=== PATIENT | male | born 1990 | race Caucasian/White ===

== ENCOUNTER 2021-06-10 01:18 | Emergency (ER) | payer BC ==
[2021-06-10] MEDS ORDERED: AMOXIL500 M1 PO (02:04)
[2021-06-10 02:15] VITALS: BP 128/74
== END 2021-06-10 02:15 | disposition home or self-care (01) ==
LOC: ED 01:18
DX: S01.512A Laceration without foreign body of oral cavity, initial encounter (principal); F17.210 Nicotine dependence, cigarettes, uncomplicated; W01.0XXA Fall on same level from slipping, tripping and stumbling without subsequent striking against object, initial encounter

== ENCOUNTER 2024-03-21 23:59 | Emergency (ER) | payer BC ==
[~2024-03-21] VITALS: Ht 170.2 cm; Wt 95.5 kg
[~2024-03-21 23:59] MED LIST: AMOXIL500 M1 PO
[2024-03-22 00:41] LABS: BASO # 0.03 K/mm3 (0.02-0.10); EOS # 0.27 K/mm3 (0.04-0.40); EOS % 3.8 % (0.0-4.0); HEMATOCRIT 39.6 % (42.0-52.0); HEMOGLOBIN 13.4 g/dL (13.5-18.0); LYMPH# 3.83 K/mm3 (1.50-4.00); MEAN CELL VOLUME 90 fl (78-100); MEAN CORPUSCULAR HEMOGLOBIN 31 pg (27-31); MEAN CORPUSCULAR HGB CONC 34 g/dL (33-37); MEAN PLATELET VOLUME 9.2 fl (7.4-10.4); MONO # 0.66 K/mm3 (0.20-0.80); NEU # 2.39 K/mm3 (1.40-6.50); PLATELET COUNT 347 K/mm3 (130-400); RED BLOOD COUNT 4.38 M/mm3 (4.20-5.60); RED CELL DISTRIBUTION WIDTH 12.7 % (11.5-14.5); WHITE BLOOD COUNT 7.2 K/mm3 (4.8-10.8)
[2024-03-22] MEDS ORDERED: NS 1,000 ML IV SCH (00:45)
[2024-03-22 00:48] LABS: ALBUMIN 4.3 g/dL (3.5-5.0)
[2024-03-22 00:49] LABS: CALCIUM 9.6 mg/dL (8.3-10.5)
[2024-03-22 00:50] LABS: TOTAL PROTEIN 6.7 g/dL (6.4-8.3)
[2024-03-22 00:52] LABS: TOTAL BILIRUBIN 0.2 mg/dL (0.2-1.2)
[2024-03-22 01:48] VITALS: BP 133/84
== END 2024-03-22 01:53 | disposition home or self-care (01) ==
LOC: ED 23:59
PROVIDERS: Physician Assistant
DX: R00.2 Palpitations (principal); R71.0 Precipitous drop in hematocrit
CPT/HCPCS: J7030